=== PATIENT | male | born 1985 ===

== ENCOUNTER 2020-07-23 14:59 | Emergency (ER) | payer SELFPAY ==
--- NOTE | 2020-07-23 16:06 | PC.NURSE ---
patient states I am going to go home, I dont need to be seen at this time. Thank you.
== END 2020-07-23 16:06 | disposition left against medical advice (07) ==
DX: Z53.21 Procedure and treatment not carried out due to patient leaving prior to being seen by health care provider (principal)
CPT/HCPCS: 99199